=== PATIENT | female | born 1930 | race Caucasian/White ===

== ENCOUNTER → 2016-09-29 | Outpatient (CLI) | payer MEDICARE, BC ==
[~2016-09-29] MED LIST: ASPIRIN 32325 MG/TAB PO; ATENOLOL100 MG PO; ATIVAN 1MG T1 MG/TAB PO; ATIVAN0.5 MG PO; AZASITE 2.5 ML2.5 ML OP; AZASITE 2.5 ML2.5 ML OS; BENADRYL25 M2 PO; CALCIUM + D 6001 TA1 PO; CALCIUM 600MG+D1 TAB PO; CARDURA 2MG2 MG PO; CEPHALEXIN500 M1 PO; FISH OIL CONC1000 MG PO; FOSAMAX10 MG PO; HCTZ 25MG TAB25 MG PO; HCTZ PO; KLOR-CON 1010 MEQ PO; LEVOXYL0.05 MG PO; LISINOPRIL40 MG PO; LOMOTIL TAB 01 UDTAB PO; MASON NATURAL1200 MG PO; MEDI-FIRST ASP325 MG PO; MULTIPLE VITAMI1 TAB PO; NASONEX SPRAY17 GM NS; NATURAL FLAX1000 MG PO; NORCO 325 MG-51 TAB PO; NORVASC 5MG5 MG/TAB PO; NORVASC2.5 MG PO; OMEGA-3 FISH1000 MG PO; PACERONE100 MG PO; PAMELOR 10MG10 MG PO; PAMELOR 25MG25 MG PO; PLAVIX 75MG TAB75 MG PO; PRINIVIL40 MG PO; PROLIA60 MG/ML SC; PROTONIX 40MG T40 MG PO; SYNTHROID0.05 MG/TA PO; TENORMIN 5050 MG/TAB PO
== END ==
LOC: COL.RAD 13:37
DX: R13.14 Dysphagia, pharyngoesophageal phase (principal); R47.89 Other speech disturbances
CPT/HCPCS: G8996-GN; G8997-GN; G8998-GN

== ENCOUNTER 2016-12-14 08:17 | Emergency (ER) | payer MEDICARE, BC ==
[~2016-12-14] VITALS: Ht 152.4 cm; Wt 48.2 kg
[~2016-12-14 08:17] MED LIST changes: -NORVASC2.5 MG PO; -OMEGA-3 FISH1000 MG PO; -PAMELOR 10MG10 MG PO
[2016-12-14 08:22] VITALS: TEMP 97.4
[2016-12-14] MEDS ORDERED: NORVASC2.5 MG PO (09:18)
[2016-12-14] MEDS ORDERED: HCTZ 25MG TAB25 MG PO (09:19)
[2016-12-14] MEDS ORDERED: PRINIVIL40 MG PO (09:19)
[2016-12-14] MEDS ORDERED: PAMELOR 10MG10 MG PO (09:19)
[2016-12-14] MEDS ORDERED: OMEGA-3 FISH1000 MG PO (09:20)
[2016-12-14 11:50] VITALS: BP 143/62; PULSE 60
== END 2016-12-14 11:48 | disposition home or self-care (01) ==
LOC: COL.ER 08:17
DX: S09.90XA Unspecified injury of head, initial encounter (principal); S01.01XA Laceration without foreign body of scalp, initial encounter; W01.198A Fall on same level from slipping, tripping and stumbling with subsequent striking against other object, initial encounter; Y92.008 Other place in unspecified non-institutional (private) residence as the place of occurrence of the external cause; I10 Essential (primary) hypertension; Z79.02 Long term (current) use of antithrombotics/antiplatelets; Z95.0 Presence of cardiac pacemaker; R40.2412 Glasgow coma scale score 13-15, at arrival to emergency department